=== PATIENT | female | born 1950 | race Caucasian/White ===

== ENCOUNTER 2020-08-19 17:01 | Emergency (ER) | payer MEDICARE, SELFPAY ==
[2020-08-19 17:02] VITALS: BP 188/108; PULSE 63; RESP 18; TEMP 35.8; O2SAT 99; BMI 23.1
--- NOTE | 2020-08-19 17:18 | ED.DCSUM_ITS ---
- ER Visit Summary Date of Service: 08/19/20 Chief Complaint: Fall with right elbow pain History of Present Illness: The patient is a 69 F history of hypertension high cholesterol. Patient was working outside today. Tripped over something landed on her right elbow complaining of pain. Denies hitting her head or having any other injuries. She is right-hand dominant. No prior history or surgery to her right upper extremity. Physical Examination: Older female no acute distress vital signs stable and afebrile. H EENT exam atraumatic. Nontender. Pupils round reactive light. No facial trauma. C-spine nontender. Trachea midline. Lungs clear to auscultation. Heart regular rhythm no murmur. Chest wall nontender. Abdomen soft nontender. Extremities moves all 4. Neurovascular intact. Left upper both lower extremities have normal range of motion are nontender. Without deformity. The right elbow is swollen and tender. She is able to do flexion extension somewhat limited. The right shoulder and wrist are nontender. Normal range of motion. Normal radial pulse. 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 Neurologically she is awake and alert with no focal motor deficits. Back nontender. GCS 15. Test Results: Right elbow x-ray 3 views read by myself and radiologist shows a nondisplaced humeral condylar fracture. Patient was placed in a short arm well- padded posterior splint fabricated out of [employer]. Patient tolerated procedure well. We discussed her x-ray. Emergency Department Course and Treatment: Patient given Tell p.o. for pain. X-ray obtained. Treatment Plan: Repeat exam patient doing well at 6:40 PM. Keep splint dry and clean. Ice. Tell for pain. Motrin for pain and swelling. Follow-up with orthopedics. Disposition: Discharge Impression: Trip and fall Acute right elbow nondisplaced humeral condylar fracture Short arm posterior splint by ER fabricated from [employer] This note was generated with [employer] dictation software. It may contain incorrect words, spelling, and punctuation that were not noted in review of the chart prior to signing ED Disposition - Plan for ED Patient: Referrals: Crow Pitts MD [Primary Care Provider] -
[2020-08-19] MEDS: HYDROcodone Bitartrate/Apap 5/325 Tablet PO (17:26)
--- NOTE | 2020-08-19 17:27 | RAD_ITS ---
STUDY: X-RAY - RIGHT ELBOW REASON FOR EXAM: Female, 69 years old. Fall, pain and swelling to elbow. TECHNIQUE: 3 view(s) of the elbow. COMPARISON: None. FINDINGS: Nondisplaced fracture of the distal humeral epicondyle evident, best seen on oblique view. There are small bony densities adjacent to the medial condyle . Normal radiocapitellar and ulnotrochlear articulations. Significant soft tissue swelling of the medial elbow. Joint effusion is noted. RAD/Elbow min 3 Views IMPRESSION: 1. Nondisplaced distal humeral condylar fracture. Soft tissue swelling. Electronically Signed: Marcelino Arias MD ([place]) at 17:40 EDT , Service support ,
--- NOTE | 2020-08-19 18:42 | ED.DEP ---
ED Disposition - Plan for ED Patient: Disposition: Home or Assisted Living Instructions: ED FRACTURE Elbow Prescriptions: Hydrocodone/Acetaminophen [[place] 7.5-325 Tablet] 1 ea PO Q4H PRN PRN 4 Days #14 tab PRN Reason: Pain/Inflammation Prescription Printed Referrals: Randy Ruiz DO [STAFF PHYSICIAN] - As soon as possible Additional Instructions: Ice and elevate the right elbow to keep the pain and swelling down. [place] for pain. Motrin for pain and swelling. Keep the splint dry and clean. Call and follow-up with an orthopedic physician Dr. Randy Ruiz of [facility] is rubber production machine operator today.
[2020-08-19 18:51] VITALS: BP 136/87; PULSE 56; RESP 16
== END 2020-08-19 19:46 | disposition home or self-care (01) ==
PROVIDERS: Emergency Provider Emergency Medicine; PCP Family Medicine
DX: S42.464A Nondisplaced fracture of medial condyle of right humerus, initial encounter for closed fracture (principal); W01.0XXA Fall on same level from slipping, tripping and stumbling without subsequent striking against object, initial encounter; Y93.89 Activity, other specified; Y92.9 Unspecified place or not applicable; Y99.9 Unspecified external cause status; I10 Essential (primary) hypertension; E78.00 Pure hypercholesterolemia, unspecified
CPT/HCPCS: 29405; 73080; 99282

== ENCOUNTER → 2021-01-05 13:04 | Outpatient (CLI) | payer MEDICARE, SELFPAY ==
[2021-01-05 10:40] VITALS: BMI 24.5
== END ==
PROVIDERS: PCP Family Medicine; Referring Provider Obstetrics & Gynecology; Visit Provider Obstetrics & Gynecology
DX: R31.9 Hematuria, unspecified (principal)
CPT/HCPCS: 87086; 87088

== ENCOUNTER → 2021-01-12 14:31 | Outpatient (CLI) | payer MEDICARE, SELFPAY ==
[2021-01-05 10:40] VITALS: BMI 24.5
--- NOTE | 2021-01-12 14:37 | US_ITS ---
INDICATION: PMB EXAMINATION: US Transvaginal Non-OB TECHNIQUE: Transabdominal and transvaginal pelvic ultrasound was performed. Grayscale, spectral waveform, and color flow Doppler evaluation of the adnexa. COMPARISON: None. FINDINGS: No uterus or ovaries seen on today''s examination. No abnormalities seen in the bilateral adnexae. No free fluid. US/Transvaginal Non- IMPRESSION: Nonvisualization of the uterus or bilateral ovaries. Electronically Signed: Nav Hurt MD at 21:13 EDT Tel , Service support ,
== END ==
LOC: US 14:36
PROVIDERS: PCP Family Medicine; Referring Provider Obstetrics & Gynecology; Visit Provider Obstetrics & Gynecology
DX: N95.0 Postmenopausal bleeding (principal)
CPT/HCPCS: 76830

== ENCOUNTER → 2021-06-11 15:45 | Outpatient (CLI) | payer MEDICARE, SELFPAY ==
[2021-02-05 13:16] VITALS: BMI 24.4
--- NOTE | 2021-06-11 15:46 | US_ITS ---
STUDY: THYROID ULTRASOUND REASON FOR EXAM: Female, 70 years old. Neck pain.-LT SIDE TECHNIQUE: Ultrasound evaluation of the thyroid was performed with real-time and static elder-scale imaging. COMPARISON: None. FINDINGS: RIGHT LOBE: The right lobe of the thyroid gland measures 4 cm x 2 cm x 2.1 cm. There is a heterogeneous echotexture. There is a 6 mm x 4 mm x 5 mm well-defined solid nodule in the midpole. LEFT LOBE: The left lobe of the thyroid gland measures 5.1 cm x 1.5 cm x 1.5 cm. There is a heterogeneous echotexture. There is an 8 mm x 6 mm x 5 mm hypoechoic solid nodule in the midpole. ISTHMUS: The isthmus measures 6 mm. 2 small lymph nodes are seen in the left side the neck. The larger measures 1.6 x 1.4 cm x 0.5 cm US/Thyroid IMPRESSION: Heterogeneous appearance of both lobes of thyroid. Mild enlargement of the left lobe. Subcentimeter hypoechoic solid nodules in both lobes as described. Electronically Signed: Maurice Fallon MD at 13:10 EDT , Service support ,
== END ==
LOC: US 15:45
PROVIDERS: PCP Family Medicine; Referring Provider Family Medicine; Visit Provider Family Medicine
DX: M54.2 Cervicalgia (principal)
CPT/HCPCS: 76536